=== PATIENT | male | born 1965 | race African-American/Black ===

== ENCOUNTER 2017-04-14 03:01 | Emergency (ER) | payer OTHER ==
[~2017-04-14] VITALS: Ht 188 cm; Wt 131.1 kg
[~2017-04-14 03:01] MED LIST: IBUPROFEN600 MG PO; PERCOCET 5-3251 EACH PO; ZOFRAN4 MG PO
[2017-04-14] MEDS ORDERED: SUMATRIPTAN SUC50 MG PO (03:12)
[2017-04-14] MEDS ORDERED: INDERAL LA160 MG PO (03:13)
[2017-04-14] MEDS ORDERED: PROVENTIL HFA6.7 GM INH (03:14)
[2017-04-14] MEDS ORDERED: TOPAMAX50 MG PO (03:14)
== END 2017-04-14 04:55 | disposition home or self-care (01) ==
LOC: ED 03:01
DX: G44.009 Cluster headache syndrome, unspecified, not intractable (principal); I10 Essential (primary) hypertension; F17.200 Nicotine dependence, unspecified, uncomplicated; Z79.899 Other long term (current) drug therapy
CPT/HCPCS: 96361; 96374; 96375; 99282; J1100; J1200; J1885; J2405; J2765; J7030

== ENCOUNTER 2018-01-04 03:17 | Emergency (ER) | payer OTHER ==
[~2018-01-04] VITALS: Ht 188 cm; Wt 131.1 kg
--- OUTSIDE RECORDS SUMMARY | ~2018-01-04 | XMS | Clinical Summary ---
Demographics + + + | Address | [address] | | | [place] [address] | + + + | Home Phone | | + + + | Preferred Language | Unknown | + + + | Marital Status | | + + + | Mandaen Affiliation | Unknown | + + + | Race | White | + + + | Ethnic Group | Not or | + + + Author + + + | Author | [facility] | + + + | Organization | [facility] | + + + | Address | Unknown | + + + | Phone | Unavailable | + + + Support + + + + + | Name | Relationship | Address | Phone | + + + + + | REINALDO MENDEZ | ECON | [address] | | | | | [place], [place] | | | | | [address] | | + + + + + Care Team Providers + +------+ + | Care Culinary Instructor Name | Role | Phone | + +------+ + | Latoya Waldrop MD | PP | | + +------+ + Source Comments [facility] is fully live on both [facility] Ambulatory and [facility] InPatient.[facility] Allergies No Known Allergies Current Medications + + +-------+---------+------+------+-------+ | Prescription | Sig. | Disp. | Refills | Star | End | Statu | | | | | | t | Date | s | | | | | | Date | | | + + +-------+---------+------+------+-------+ | ibuprofen 200 mg | Take 200 mg by | | | | | Activ | | Oral Capsule | mouth. 3 tabs as | | | | | e | | | needed | | | | | | + + +-------+---------+------+------+-------+ | acetaminophen | Take 325 mg by mouth | | | | | Activ | | (TYLENOL) 325 mg | every four hours as | | | | | e | | Oral Tablet tablet | needed | | | | | | + + +-------+---------+------+------+-------+ Active Problems + + + | Problem | Noted Date | + + + | Meningitis | 12/28/2008 | + + + + + | Overview: Recurrent of unknown etiology | + + + + + | Headache | 12/28/2008 | + + + + + | Overview: ICD10 | + + Social History + +-------+ +--------+------+ | Tobacco Use | Types | Packs/Day | Years | Date | | | | | Used | | + +-------+ +--------+------+ | Never Assessed | | | | | + +-------+ +--------+------+ + + + | Sex Assigned at | Date Recorded | | | | + + + | Not on file | | + + + Last Filed Vital Signs + + + + | Vital Sign | Reading | Time Taken | + + + + | Blood Pressure | 118/78 | 02/16/2009 11:42 AM PDT | + + + + | Pulse | 81 | 02/16/2009 11:42 AM PDT | + + + + | Temperature | 36.5 C (97.7 F) | 02/16/2009 11:42 AM PDT | + + + + | Respiratory Rate | 14 | 12/28/2008 8:47 AM PDT | + + + + | Oxygen Saturation | 98% | 02/16/2009 11:42 AM PDT | + + + + | Inhaled Oxygen | - | - | | Concentration | | | + + + + | Weight | 121.6 kg (268 lb) | 02/16/2009 11:42 AM PDT | + + + + | Height | 190.5 cm (6' 3") | 02/16/2009 11:42 AM PDT | + + + + | Body Mass Index | 33.5 | 02/16/2009 11:42 AM PDT | + + + + Plan of Treatment + + + + + | Health Maintenance | Due Date | Last Done | Comments | + + + + + | INFLUENZA VACCINE | | | | | (FLU SHOT) | 8 | | | + + + + + Results Not on filefrom Last 3 Months
--- OUTSIDE RECORDS SUMMARY | ~2018-01-04 | XMS | Clinical Summary ---
Demographics + + + | Address | [address] | | | [place] [address] | + + + | Home Phone | | + + + | Preferred Language | Unknown | + + + | Marital Status | | + + + | Worship Affiliation | Unknown | + + + | Race | Unknown | + + + | Ethnic Group | Unknown | + + + Author + + + | Author | [facility] | + + + | Organization | [facility] | + + + | Address | Unknown | + + + | Phone | Unavailable | + + + Support + + + + + | Name | Relationship | Address | Phone | + + + + + | Detailed,Message | ECON | Unknown | | + + + + + | Mendez, Cristela E | ECON | [address] | | | | | [place] | | | | | [address] | | + + + + + Care Team Providers + +------+ + | Care Evaluation Analyst Name | Role | Phone | + +------+ + | Cj Chew MD | PP | | + +------+ + Allergies No Known Allergies Current Medications + + +--------+---------+------+------+-------+ | Prescription | Sig. | Disp. | Refills | Star | End | Statu | | | | | | t | Date | s | | | | | | Date | | | + + +--------+---------+------+------+-------+ | lisinopril | Take 20 mg by mouth | | | | | Activ | | (PRINIVIL,ZESTRIL) | daily. | | | | | e | | 20 MG tablet | | | | | | | + + +--------+---------+------+------+-------+ | aspirin 81 MG EC | Take 81 mg by mouth | | | | | Activ | | tablet | daily with | | | | | e | | | breakfast. | | | | | | + + +--------+---------+------+------+-------+ | loratadine | Take 10 mg by mouth | | | | | Activ | | (CLARITIN) 10 MG | daily. | | | | | e | | tablet | | | | | | | + + +--------+---------+------+------+-------+ | lisinopril | Add the 10 mg | 30 | 3 | 03/1 | | Activ | | (PRINIVIL,ZESTRIL) | lisinopril dose to | tablet | | 3/20 | | e | | 10 MG tablet | the 20 mg for a | | | 14 | | | | | total dose of 30 mg | | | | | | | | once daily. | | | | | | + + +--------+---------+------+------+-------+ Active Problems + + + | Problem | Noted Date | + + + | Migraine headache | 12/05/2013 | + + + | HSV (herpes simplex virus) infection | 12/05/2013 | + + + | Hypertension | 12/05/2013 | + + + | Intractable headache | 12/05/2013 | + + + | Morbidly obese | 10/09/2013 | + + + | Screening for diabetes mellitus | 10/09/2013 | + + + | Screening for hyperlipidemia | 10/09/2013 | + + + Resolved Problems + + + + | Problem | Noted | Resolved | | | Date | Date | + + + + | Viral meningitis | 10/08/19 | | | | 14 | 4 | + + + + | HTN (hypertension) | 10/08/19 | | | | 14 | 4 | + + + + | Intractable headache | 10/08/19 | | | | 14 | 4 | + + + + | Altered mental status | 10/08/19 | | | | 14 | 4 | + + + + Immunizations + + + + | Name | Dates Previously Given | Next Due | + + + + | Pneumococcal | 10/09/2013 | | | Polysaccharide | | | | 23-valent | | | + + + + Family History + +------+--------+ + | Relation | Name | Status | Comments | + +------+--------+ + | Father | | Alive | | + +------+--------+ + | Mother | | Alive | | + +------+--------+ + Social History + + + +--------+------+ | Tobacco Use | Types | Packs/Day | Years | Date | | | | | Used | | + + + +--------+------+ | Current Some Day | Cigarettes, Cigars | | | | | Smoker | | | | | + + + +--------+------+ + +---+---+---+ | Smokeless Tobacco: | | | | | Never Used | | | | + +---+---+---+ + + +---------+ + | Alcohol Use | Drinks/We | oz/Week | Comments | | | ek | | | + + +---------+ + | Yes | | | occasional (not since became sick) | + + +---------+ + + + + | Sex Assigned at | Date Recorded | | | | + + + | Not on file | | + + + Last Filed Vital Signs + + + + | Vital Sign | Reading | Time Taken | + + + + | Blood Pressure | 145/101 | 12/04/2013 9:07 AM PDT | + + + + | Pulse | 84 | 12/04/2013 9:07 AM PDT | + + + + | Temperature | 36.4 C (97.5 F) | 10/28/2013 9:52 AM PST | + + + + | Respiratory Rate | 18 | 10/28/2013 9:52 AM PST | + + + + | Oxygen Saturation | 98% | 10/28/2013 9:52 AM PST | + + + + | Inhaled Oxygen | - | - | | Concentration | | | + + + + | Weight | 120.2 kg (265 lb) | 12/04/2013 9:07 AM PDT | + + + + | Height | 188 cm (6' 2") | 12/04/2013 9:07 AM PDT | + + + + | Body Mass Index | 34.02 | 12/04/2013 9:07 AM PDT | + + + + Plan of Treatment + + + + + | Health Maintenance | Due Date | Last Done | Comments | + + + + + | Vaccine: | | | | | Dtap/Tdap/Td (1 - | 4 | | | | Tdap) | | | | + + + + + | Colon Cancer | | | | | Screening | 5 | | | | (Colonoscopy) | | | | + + + + + | Vaccine: Influenza | | | | | (Season Ended) | 8 | | | + + + + + | Vaccine: | Completed | 10/09/2013 | | | Pneumococcal 19-64 | | | | | (PPSV23 only) Medium | | | | | Risk | | | | + + + + + Results Not on filefrom Last 3 Months Insurance + +--------+ +------+-------+---------+ | Payer | Benefi | Subscriber | Type | Phone | Address | | | t Plan | ID | | | | | | / | | | | | | | Group | | | | | + +--------+ +------+-------+---------+ | [employer] | FC-NET | xxxxxxxxxxx | | | | | | WORK | | | | | + +--------+ +------+-------+---------+ | [employer] | [employer]DS | xxxxxxxxx | | | | | | HEALTH | | | | | | | PLAN | | | | | + +--------+ +------+-------+---------+ + +--------+ +--------+ + + | Guarantor Name | Accoun | Relation to | Date | Phone | Billing Address | | | t Type | Patient | of | | | | | | | | | | + +--------+ +--------+ + + | CRISTELA MENDEZ | Person [birth year] Self [birth year] Home: | [address] | | | al/Siddhartha | | [phone] | [phone] [place] | | | panda | | | [phone] | [phone] | + +--------+ +--------+ + +
--- OUTSIDE RECORDS SUMMARY | ~2018-01-04 | XMS | Clinical Summary ---
Demographics + + + | Address | [address] | | | [place] [address] | + + + | Home Phone | | + + + | Preferred Language | Unknown | + + + | Marital Status | | + + + | Gnosticist Affiliation | Unknown | + + + | Race | White | + + + | Ethnic Group | Not or | + + + Author + + + | Author | [facility] | + + + | Organization | [...] [place], [place] | | | | | [address] | | + + + + + Care Team Providers + +------+ + | Care Lab Animal Technologist Name | Role | Phone | + +------+ + | Latoya Waldrop MD | PP | | + +------+ + Source Comments [facility] is fully live on both [facility] Ambulatory and [facility] InPatient.[facility] Allergies No Known Allergies Current Medications + [...]
--- OUTSIDE RECORDS SUMMARY | ~2018-01-04 | XMS | Clinical Summary ---
Demographics + + + | Address | [address] | | | [place] [address] | + + + | Home Phone | | + + + | Preferred Language | Unknown | + + + | Marital Status | | + + + | Denominational Affiliation | Unknown | + + + | Race | Unknown | + + + | Ethnic Group | Unknown | + + + Author + + + | Author | [facility] | + + + | Organization | [facility] | + + + | Address | Unknown | + + + | Phone | Unavailable | + + + Support + + + + + | Name | Relationship | Address | Phone | + + + + + | Detailed,Message | ECON | Unknown | | + + + + + | Mendez, Cristela E | ECON | [address] | | | | | [place] | | | | | [phone] | | + + + + + Care Team Providers + +------+ + | Care Account Underwriter Name | Role | Phone | + [...] | [place] | | | [phone] | [phone] | + +--------+ +--------+ + +
[~2018-01-04 03:17] MED LIST changes: +INDERAL LA160 MG PO; +PROVENTIL HFA6.7 GM INH; +SUMATRIPTAN SUC50 MG PO; +TOPAMAX50 MG PO
[2018-01-04] MEDS ORDERED: NEURONTIN300 MG PO (03:29)
[2018-01-04] MEDS ORDERED: AUGMENTIN125 MG/51 PO (03:30)
[2018-01-04] MEDS ORDERED: HYDROCHLOROTH12.5 M1 PO (03:31)
[2018-01-04] MEDS ORDERED: CYCLOBENZAPRINE10 MG PO (03:45)
[2018-01-04] MEDS ORDERED: PENICILLIN V P500 MG PO (03:47)
[2018-01-04] MEDS ORDERED: BACLOFEN10 MG PO (12:53)
[2018-01-04] MEDS ORDERED: NORCO 5-325 TA1 EACH PO (12:53)
[2018-01-04] MEDS ORDERED: METHYLPREDNISOLO4 M1 PO (12:53)
--- NOTE | 2018-01-04 22:49 | EKG ---
[facility] [address] [facility] [place] [address] Signed Normal sinus rhythm Incomplete right bundle branch block Cannot rule out Anterior infarct , age undetermined Abnormal ECG No previous ECGs available Confirmed by ALYSSA MERCHANT MD ([id number]) on 01/04/2018 10:49:18 PM Electronically Signed By: ALYSSA MERCHANT MD 01/04/18 2249 PATIENT NAME: CRISTELA MENDEZ Electrocardiogram DATE OF : 63 PHYSICIAN: ALYSSA MERCHANT MD REPORT #: [id number] REPORT IS CONFIDENTIAL AND NOT TO BE RELEASED WITHOUT AUTHORIZATION
== END 2018-01-04 13:07 | disposition home or self-care (01) ==
LOC: ED 03:17
DX: M99.81 Other biomechanical lesions of cervical region (principal); I10 Essential (primary) hypertension; Z87.891 Personal history of nicotine dependence; Z79.899 Other long term (current) drug therapy; Z79.2 Long term (current) use of antibiotics
CPT/HCPCS: 70491; 71045; 72156; 80053; 84484; 85025; 93005; 93010; 96374; 96375; 99284; A9579; J1100; J1885; J3360; Q9967